=== PATIENT | male | born 1960 | race Caucasian/White ===

== ENCOUNTER 2018-01-10 09:24 | Outpatient (CLI) | payer BC | END 2018-01-10 09:31 | disposition home or self-care (01) | LOC: SONOGRAMA 09:24 | DX: M25.512 Pain in left shoulder (principal) ==

== ENCOUNTER 2019-10-02 12:16 | Outpatient (CLI) | payer OTHER ==
[~2019-10-02 12:16] MED LIST: LYRICA50 MG PO
== END 2019-10-02 12:18 | disposition home or self-care (01) ==
LOC: RAD 12:16
PROVIDERS: ATTEND Specialist
DX: M54.5 Low back pain (principal)

== ENCOUNTER 2020-03-18 08:39 | Outpatient (CLI) | payer OTHER | END 2020-03-18 09:07 | disposition HB | LOC: MRI 08:39 | DX: S46.012A Strain of muscle(s) and tendon(s) of the rotator cuff of left shoulder, initial encounter (principal); M25.512 Pain in left shoulder; M25.561 Pain in right knee | CPT/HCPCS: 73221 ==